=== PATIENT | male | born 1930 | race Caucasian/White ===

== ENCOUNTER 2019-01-04 23:33 | Observation (INO) ==
--- NOTE | 2019-01-04 05:05 | Internal Med History&Physical ---
Date of Encounter: 01/04/19 Time of Encounter: 05:07 Internal Medicine - H&P: HPI Chief complaint: Hematuria Admitted From: Hospital to Hospital Transfer Plans for Post Hospital Care: Home History of present illness: Mr. Martinez is a 88 year old male Patient presented to the [facility] emergency department with blood in his catheter. Patient has baseline dementia, and is unable to provide detailed history. Most of history obtained from [facility] emergency department records. Patient had apparently been seen at [facility] the day before and had a Hendrix catheter placed. He was sent to his detention at that point and urology follow-up and antibiotics were provided to him. He returned to the ER as it was noted that he had blood coming out of catheter site and within the catheter itself. He was also not draining very well. Patient arrived with the Hendrix unsecured, he had no leg bar in place but this had been done for him when he left the emergency department the day previously. Upon arrival his urine appeared dark and there was a small clot noted near the meatus of the penis. The emergency department attempted to irrigate the Hendrix but there was no return into the Hendrix bag. A CT was performed that showed that the balloon of the Hendrix had inflated in the prostate and the tip of the catheter was distal to the bladder. This Hendrix was then removed and a new coude catheter was inserted and there was an immediate return of 800 mL of dark urine. The [facility] emergency department contacted urology director hr communications Dr. Meléndez who agreed to see the patient when he arrives to [facility]. A repeat hemoglobin was performed and was noted to be 7.1. Blood bank labs were ordered and patient was started on 1 unit of PRBCs for transfusion. BMP: Sodium 140, potassium 4.3, chloride 106, CO2 26, P1 26, creatinine 1.88, glucose 99 Liver function tests: AST 29, ALT 17, alkaline phosphatase 90, total bilirubin 0.9 CBC: White count 9.7, hemoglobin 7.6 (repeat 7.1), hematocrit 24.4, platelets 154 CT abdomen and pelvis without contrast: 1. Urinary bladder is distended with air in non-dependent portion. Gas may be iatrogenic versus related to infection. 2. Hendrix catheter has been placed and malpositioned with balloon dilated in prostatic urethra. Tip is in the posterior aspect of the prostate. 3. Small bilateral effusions and bibasilar airspace disease with some cavitation on the right. This is favored infectious in etiology cavitation can also be seen in setting of primary neoplasm versus metastatic process. 4. Cardiomegaly with coronary aortic calcification. Upon my evaluation, patient is resting comfortably in hospital bed in no acute distress. He is not oriented to place, time but is to person. He denies chest pain, abdominal pain, nausea, vomiting, diarrhea and constipation. assisted documentation indicates that the patient's CODE STATUS is DNR CC. Past Med Surg Social Fam HX - Past Medical History Medical history: atrial fibrillation, coronary artery disease, hypertension Psychiatric history: no psych history - Past Surgical History Surgical History: pacemaker/AICD - Social History Smoking Status: Former smoker Smokeless Tobacco Status: No Alcohol use: none Drug use: none Internal Medicine - H&P: Meds Acetaminophen [Tylenol] 650 mg PO Q4H PRN tablet 12/20/18 [Rx] Amiodarone [Cordarone] 200 mg PO DAILY tablet 12/20/18 [Rx] Bisacodyl [Dulcolax] 10 mg RC DAILY PRN supp.rect 12/20/18 [Rx] Cyanocobalamin (B-12) [Vitamin B12] 1,000 mcg PO DAILY tablet 12/20/18 [Rx] Finasteride [Proscar] 5 mg PO DAILY tablet 12/20/18 [Rx] Ipratropium/Albuterol Neb [Duoneb] 3 ml IH [id number] PRN inhsol 12/20/18 [Rx] Lacri-Lube [Lacri-lube] 1 appl BOTH EYES BID tube 12/20/18 [Rx] Midodrine [ProAmatine] 5 mg PO 0800,1200,1700 tablet 12/20/18 [Rx] Polyethylene Glycol 3350 [MiraLAX] 17 gm PO DAILY powd.pack 12/20/18 [Rx] Simethicone [Gas-X] 80 mg PO TID PRN tab.chew 12/20/18 [Rx] levETIRAcetam [Keppra] 1,000 mg PO Q12HR tablet 12/20/18 [Rx] Ciprofloxacin HCL 500 mg PO BID 01/04/19 [History] Ondansetron [Zofran] 4 mg PO Q4HR PRN 06/27/19 [History] Allergy/AdvReac Type Severity Reaction Status Date / Time Penicillins Allergy Anaphylaxis Verified 12/18/18 17:32 promethazine [From Phenergan] Allergy See Verified 01/04/19 03:51 Comments Streptomycin Allergy Anaphylaxis Verified 12/18/18 17:32 Sulfa (Sulfonamide Allergy Anaphylaxis Verified 12/18/18 17:32 Antibiotics) All Systems PM: A 10-system review of systems was performed and is negative for pertinent findings except as documented above in the HPI. - Constitutional Vitals: Temp Pulse Resp BP Pulse Ox 98.7 F 70 16 136/72 94 01/04/19 02:21 01/04/19 02:21 01/04/19 02:21 01/04/19 02:21 01/04/19 03:26 General appearance: Present: cooperative, A&O X 1, pleasant, no acute distress, answers questions appropriately Exam: - - Head Head exam: Present: normal inspection - Eye Eye exam: Present: EOMI, normal appearance - Respiratory Respiratory exam: Present: CTAB. Absent: rales, respiratory distress, rhonchi, wheezes - Cardiovascular Cardiovascular exam: Present: RRR, systolic murmur. Absent: diastolic murmur Additional comments: Grade 2 systolic murmur - GI/Abdominal GI/Abdominal exam: Present: normal bowel sounds, soft. Absent: tenderness - Additional comments: Blood noted at the urethral meatus. Hendrix catheter appears to be draining urine - Extremities Exam Extremities exam: Present: warm, radial pulses palpable and symmetrical. Absent: calf tenderness, pedal edema, tenderness - Neurological Exam Neurological exam: Present: alert, altered, no focal deficits, strengths equal and symetr throughout. Absent: motor sensory deficit, facial droop, speech deficit - Skin Skin exam: Present: dry, normal color, warm - Assessment and Plan (1) Hematuria Current Visit: Yes Status: Acute Assessment and plan: Likely secondary to catheter trauma. Patient's hemoglobin was noted to be 7.1. He was typed and screened at the [facility] emergency room department and given 1 unit of PRBCs. Follow-up repeat hemoglobin Urology consultation Transfuse if indicated Type and screen Qualifiers: Hematuria type: gross Qualified Code(s): R31.0 - Gross hematuria (2) Hendrix catheter problem Current Visit: Yes Status: Acute Assessment and plan: Patient's Hendrix was noted to be inflated in his prostate and distal to the bladder. Patient could have manipulated his previous Hendrix. The Hendrix was replaced with a coude catheter at the [facility] emergency room. Urology was n otified and will see the patient in the morning. Catheter appears to be draining at this time. Blood is still noted around the urethral meatus. He had been started on ciprofloxacin at [facility]. Continue antibiotics Follow-up urology consult Continue Hendrix catheter Monitor I's and O's Qualifiers: Encounter type: initial encounter Qualified Code(s): T83.9XXA - Unspecified complication of genitourinary prosthetic device, implant and graft, initial encounter (3) Anemia Current Visit: No Status: Acute Assessment and plan: Patient had notable clots and hematuria in his Hendrix catheter. Type and screened at [facility] and was given 1 unit PRBCs. Repeat CBC Transfuse if indicated Urology consultation today Qualifiers: Anemia type: unspecified type Qualified Code(s): D64.9 - Anemia, unspec ified (4) DVT prophylaxis Current Visit: Yes Status: Acute Assessment and plan: SCDs - Time Spent With Patient Total time spent is greater than 50% in coordination of care (as documented) at patient's floor/unit and/or counseling patient: Greater than 35 minutes
[2019-01-04 06:45] LABS: Calcium 7.9 mg/dL (8.6-10.3); Potassium 3.8 mEq/L (3.5-5.1)
--- NOTE | 2019-01-04 08:38 | Urology - Consult Note ---
<Lucinda Collier N - Last Filed: 01/04/19 09:35> Date of Encounter: 01/04/19 Time of Encounter: 08:20 - Assessment and Plan (1) Hematuria Current Visit: Yes Status: Acute Assessment and plan: Patient is an 88-year-old male who presents with gross hematuria following traumatic catheter displacement. We will plan to place a catheter, and irrigate patient's bladder as needed. Patient may require cystoscopic guidance of catheter versus suprapubic catheter placement. Qualifiers: Hematuria type: gross Qualified Code(s): R31.0 - Gross hematuria (2) Difficulty with insertion of urinary catheter Current Visit: Yes Status: Acute Assessment and plan: Patient is an 88-year-old male who presents with difficulty with insertion of urinary catheter. I suspect patient has a false passage secondary to multiple catheter attempts. I tended to place a 14-Montserratian coude catheter but met significant resistance at the prostate. I then attempted to place a wire for a solomon tip catheter, but I was unable to successfully advance physical wire into the urinary bladder. Dr. Meléndez has been notified, and he will reevaluate patient after the bladder scan is performed. Urology CN:[facility] Consult date: 01/04/19 Reason for consult Urology: Difficult Ramirez (hematuria; catheter trauma) Requesting physician: David Chatterjee History of present illness: Patient is an 88-year-old male who presents with a difficult catheter insertion and gross hematuria following trauma catheter displacement. Patient has a history of dementia, and unfortunately, he is unable to provide adequate history. Patient initially presented to [facility] where a Ramirez catheter was placed with difficulty in the emergency department. Patient was discharged back to his extended care facility, and he presented presented one day later with report of blood at the urethral meatus and in catheter tubing. The Ramirez was not secured to patient's extremity, and it appeared to be displaced. Patient subsequently underwent a CT of the pelvis revealing a displaced Ramirez catheter into the prostatic urethra. Patient underwent coude catheter placement with a 30 mL of urine drained and was subsequently transferred to [facility] for further evaluation. On my evaluation, patient is sitting upright in bed, and [facility] and ramirez catheter. Ramirez catheter is indwelling, but it appears to be displaced distally and is not draining. There is scant amount of tea color urine in bedside bag. Patient's nurses is in room and tells me he is requiring a sitter for behavior. Past Med Surg Social Fam HX - Past Medical History Medical history: atrial fibrillation, coronary artery disease, hypertension Psychiatric history: no psych history - Past Surgical History Surgical History: pacemaker/AICD - Social History Smoking Status: Former smoker Smokeless Tobacco Status: No Alcohol use: none Drug use: none - Additional Family History Additional family history: Noncontributory family history secondary to patient's mental status Medications and Allergies Acetaminophen [Tylenol] 650 mg PO Q4H PRN tablet 12/20/18 [Rx] Amiodarone [Cordarone] 200 mg PO DAILY tablet 12/20/18 [Rx] Bisacodyl [Dulcolax] 10 mg RC DAILY PRN supp.rect 12/20/18 [Rx] Cyanocobalamin (B-12) [Vitamin B12] 1,000 mcg PO DAILY tablet 12/20/18 [Rx] Finasteride [Proscar] 5 mg PO DAILY tablet 12/20/18 [Rx] Ipratropium/Albuterol Neb [Duoneb] 3 ml IH [id number] PRN inhsol 12/20/18 [Rx] Lacri-Lube [Lacri-lube] 1 appl BOTH EYES BID tube 12/20/18 [Rx] Midodrine [ProAmatine] 5 mg PO 0800,1200,1700 tablet 12/20/18 [Rx] Polyethylene Glycol 3350 [MiraLAX] 17 gm PO DAILY powd.pack 12/20/18 [Rx] Simethicone [Gas-X] 80 mg PO TID PRN tab.chew 12/20/18 [Rx] levETIRAcetam [Keppra] 1,000 mg PO Q12HR tablet 12/20/18 [Rx] Ciprofloxacin HCL 500 mg PO BID 01/04/19 [History] Ondansetron [Zofran] 4 mg PO Q4HR PRN 01/04/19 [History] Allergy/AdvReac Type Severity Reaction Status Date / Time Penicillins Allergy Anaphylaxis Verified 12/18/18 17:32 promethazine [From Phenergan] Allergy See Verified 01/04/19 03:51 Comments Streptomycin Allergy Anaphylaxis Verified 12/18/18 17:32 Sulfa (Sulfonamide Allergy Anaphylaxis Verified 12/18/18 17:32 Antibiotics) Review of Systems ROS unobtainable: due to mental status Exam Initial Vital Signs Temp Pulse Resp BP Pulse Ox 98.7 F 70 16 136/72 94 01/04/19 02:21 01/04/19 02:21 01/04/19 02:21 01/04/19 02:21 01/04/19 02:21 - General physical appearance Present: no distress, no pain - Eyes Present: PERRL, normal ocular movement - ENT Present: no congestion, decreased hearing - Neck Present: trachea midline, no lymphadenopathy - Respiratory Present: normal respiratory effort - Cardiovascular Cardiovascular exam IM: RRR - Abdomen Abdomen: Present: soft, non tender. Absent: distended - Genitourinary normal penis with no external lesions Penis: Present: retractable foreskin Urethral meatis: Present: patent - Integumentary Present: no rash, no abnormal pigmentation - Neurologic Present: disoriented, confused - Musculoskeletal Present: other (normal posture; no pedal edema ) Urology Results - Labs 01/04/19 05:43 Abnormal lab results BUN 24 mg/dL (8-23) H 01/04/19 05:43 1.63 mg/dL (0.70-1.30) H 01/04/19 05:43 Est GFR ( Amer) 49 (> 60) L 01/04/19 05:43 Est GFR (Non-Af Amer) 40 (> 60) L 01/04/19 05:43 Glucose 121 mg/dL (70-105) H 01/04/19 05:43 Calcium 7.9 mg/dL (8.6-10.3) L 01/04/19 05:43 Diabetes panel 01/04/19 Range/Units 05:43 Sodium 139 (136-145) mEq/L Potassium 3.8 (3.5-5.1) mEq/L Chloride 107 (98-107) mEq/L Carbon Dioxide 23 (23-29) mEq/L BUN 24 H (8-23) mg/dL Creatinine 1.63 H (0.70-1.30) mg/dL Glucose 121 H (70-105) mg/dL Calcium 7.9 L (8.6-10.3) mg/dL Calcium panel 01/04/19 Range/Units 05:43 Calcium 7.9 L (8.6-10.3) mg/dL Pituitary panel 01/04/19 Range/Units 05:43 Sodium 139 (136-145) mEq/L Potassium 3.8 (3.5-5.1) mEq/L Chloride 107 (98-107) mEq/L Carbon Dioxide 23 (23-29) mEq/L BUN 24 H (8-23) mg/dL Creatinine 1.63 H (0.70-1.30) mg/dL Glucose 121 H (70-105) mg/dL Calcium 7.9 L (8.6-10.3) mg/dL Adrenal panel 01/04/19 Range/Units 05:43 Sodium 139 (136-145) mEq/L Potassium 3.8 (3.5-5.1) mEq/L Chloride 107 (98-107) mEq/L Carbon Dioxide 23 (23-29) mEq/L BUN 24 H (8-23) mg/dL Creatinine 1.63 H (0.70-1.30) mg/dL Glucose 121 H (70-105) mg/dL Calcium 7.9 L (8.6-10.3) mg/dL All other labs normal. Procedures:Urology - Catheter Insertion (Urinary) Preparation: Povidone-Iodine, Urojet Type of catheter inserted: 2 way, coude tip Catheter Montserratian Size: 14 Topical anesthesia used: Yes Results: unable to pass, retried with smaller/different catheter Urine Appearance: Small Blood Clots Patient tolerated procedure: well Complications: bloody urine Additional comments: Patient lying in the supine position with executive director of nursing and ASPARAGUS BUNCHER at bedside. Patient was prepped and draped in normal sterile fashion. I removed 16-Montserratian coude catheter, because it was not draining. I first attempted to replace the indwelling 16-Montserratian catheter, but it was unable to be repositioned into the bladder. I attempted to replace a 14-Montserratian coude tip catheter, but I met a significant amount of resistance at the prostate. I then attempted to insert a zip wire, but the wire coiled back out of the patient's urethra. Patient tolerated catheter attempts well, and I did notice a small amount of blood at urethral meatus. I have ordered a bladder scan, and I notified Dr. Meléndez. We will plan to attempt either a cystoscopic guided catheter placement or meredith suprapubic catheter. Consult Discharge Plan - Plan Referrals: NONE,PCP [Non-Partnered Physician] - <Arnold Meléndez - Last Filed: 01/04/19 12:59> Date of Encounter: 01/04/19 - Assessment and Plan (1) Ramirez catheter problem Current Visit: Yes Status: Acute Assessment and plan: Patient seen and examined in conjunction with physician pediatric physical therapy assistant. Significant difficulty with catheter placement at [facility] and outside emergency room. Catheter was not in position on evaluation this morning with no urine output. On my evaluation patient had a small amount of blood per meatus. I prepped the patient with Betadine and positioned an 18-Montserratian catheter through his meatus but met resistance and was in what I suspected to be a false passage. I was eventually able to navigate a straight zip wire around the Ramirez catheter and it passed without resistance into the bladder. I then used a catheter punch to create a solomon tip catheter and passed the 18-Montserratian three-way catheter over the zip wire with return of clear urine. The balloon was inflated with 20 mL. No complications were noted. Do not remove the Ramirez catheter for any reason. Patient can be discharged per urology standpoint as he will not require further urologic intervention. He can follow with his outside urologist at [facility] or with the [place] [facility] group within 4 weeks. Qualifiers: Encounter type: initial encounter Qualified Code(s): T83.9XXA - Unspecified complication of genitourinary prosthetic device, implant and graft, initial encounter Exam Initial Vital Signs Temp Pulse Resp BP Pulse Ox 98.7 F 70 16 136/72 94 01/04/19 02:21 01/04/19 02:21 01/04/19 02:21 01/04/19 02:21 01/04/19 02:21 Urology Results - Labs 01/04/19 10:32 01/04/19 05:43 Abnormal lab results RBC 3.21 M/mcL (4.19-5.50) L 01/04/19 10:32 Hgb 8.7 g/dL (12.9-16.9) L 01/04/19 10:32 Hct 27.5 % (37.5-50.1) L 01/04/19 10:32 MCH 27.1 pg (28.0-33.3) L 01/04/19 10:32 RDW 18.8 % (11.5-14.5) H 01/04/19 10:32 BUN 24 mg/dL (8-23) H 01/04/19 05:43 1.63 mg/dL (0.70-1.30) H 01/04/19 05:43 Est GFR ( Amer) 49 (> 60) L 01/04/19 05:43 Est GFR (Non-Af Amer) 40 (> 60) L 01/04/19 05:43 Glucose 121 mg/dL (70-105) H 01/04/19 05:43 Calcium 7.9 mg/dL (8.6-10.3) L 01/04/19 05:43 Diabetes panel 01/04/19 Range/Units 05:43 Sodium 139 (136-145) mEq/L Potassium 3.8 (3.5-5.1) mEq/L Chloride 107 (98-107) mEq/L Carbon Dioxide 23 (23-29) mEq/L BUN 24 H (8-23) mg/dL Creatinine 1.63 H (0.70-1.30) mg/dL Glucose 121 H (70-105) mg/dL Calcium 7.9 L (8.6-10.3) mg/dL Calcium panel 01/04/19 Range/Units 05:43 Calcium 7.9 L (8.6-10.3) mg/dL Pituitary panel 01/04/19 Range/Units 05:43 Sodium 139 (136-145) mEq/L Potassium 3.8 (3.5-5.1) mEq/L Chloride 107 (98-107) mEq/L Carbon Dioxide 23 (23-29) mEq/L BUN 24 H (8-23) mg/dL Creatinine 1.63 H (0.70-1.30) mg/dL Glucose 121 H (70-105) mg/dL Calcium 7.9 L (8.6-10.3) mg/dL Adrenal panel 01/04/19 Range/Units 05:43 Sodium 139 (136-145) mEq/L Potassium 3.8 (3.5-5.1) mEq/L Chloride 107 (98-107) mEq/L Carbon Dioxide 23 (23-29) mEq/L BUN 24 H (8-23) mg/dL Creatinine 1.63 H (0.70-1.30) mg/dL Glucose 121 H (70-105) mg/dL Calcium 7.9 L (8.6-10.3) mg/dL All other labs normal.
[2019-01-04] MEDS: Lacri-Lube 3.5 GM TUBE BOTH EYES SCH ×2 (10:08→22:00)
[2019-01-04] MEDS: levETIRAcetam 250 MG TABLET PO SCH ×2 (10:08→21:59)
[2019-01-04] MEDS: *HR* Amiodarone 200 MG TABLET PO SCH (10:08)
[2019-01-04] MEDS: Cyanocobalamin (B-12) 1,000 MCG TABLET PO SCH (10:08)
[2019-01-04] MEDS: Finasteride 5 MG TABLET PO SCH (10:09)
--- NOTE | 2019-01-04 10:16 | Event Note ---
Date of Encounter: 01/04/19 Time of Encounter: 08:00 She was seen and examined at bedside. Patient has baseline dementia, and is unable to provide detailed history. He is alert and oriented 2 to time and person not to place ( believes he is in a house) he denies nausea, vomiting or diarrhea. He denies fever or chills has had no chest pain or palpitations. Vital signs reviewed No acute distress, laying supine in bed Clear to auscultation bilaterally Regular rate and rhythm, S1 and S2, systolic ejection murmur at the second right intercostal space Moving all 4 extremities, no edema Alert and oriented 2 to time and person not to place ( believes he is in a house) Assessment and plan Hematuria Chronic Hendrix catheter with recent catheter exchange with trauma Anemia most likely secondary to hematuria Dementia Atrial fibrillation Continue with home medications if not contraindicated Urology consulted for Hendrix exchange Continue to monitor renal functions Type and screened at [facility] and was given 1 unit PRBCs. Continue to monitor H&H closely Fall, aspiration and seizure precautions Physical therapy and occupational therapy along with case management consulted Nutrition consult
[2019-01-04 11:45] LABS: Hematocrit 27.5 % (37.5-50.1); Hemoglobin 8.7 g/dL (12.9-16.9); Mean Corpuscular HGB Conc 31.6 g/dL (31.6-35.5); Mean Corpuscular Hemoglobin 27.1 pg (28.0-33.3); Mean Corpuscular Volume 85.7 fL (83.0-100.0); Mean Platelet Volume 10.6 fL (9.4-12.4); Platelet Count 160 K/mcL (140-400); Red Blood Count 3.21 M/mcL (4.19-5.50); Red Cell Distribution Width 18.8 % (11.5-14.5); White Blood Count 9.9 K/mcL (4.3-11.1)
[2019-01-04 13:13] LABS: Bilirubin,Urine Moderate (Negative); Blood,Urine Large (Negative); Clarity,Urine Turbid (Clear); Glucose,Urine (UA) Normal (Normal); Ketones,Urine Trace mg/dL (Negative); Leukocyte Esterase,Urine Moderate (Negative); Nitrite,Urine Negative (Negative); PH,Urine 5.5 pH Units (5.0-8.0); Protein,Urine 100 mg/dL (Neg-Trace); Specific Gravity,Urine > 1.030 (1.010-1.025); Urobilinogen,Urine Normal (Normal)
[2019-01-04 13:17] LABS: Hyaline Casts,Urine None Seen per lpf (None-Few); Squamous Epithelial Cell,Urine Many per lpf (None-Few); WBC,Urine 50-100 per hpf (0-3)
[2019-01-04 13:30] LABS: Color,Urine Brown (Yellow)
[2019-01-04 14:11] LABS: Bacteria,Urine Few per hpf (None-Few); RBC,Urine 50-100 per hpf (0-3); Yeast,Urine Moderate per hpf (None Seen)
[~2019-01-04 23:33] MED LIST: Acetaminophen 325 MG TABLET PO PRN; Bisacodyl 10 MG RECTAL SUPPOSITORY RC PRN; Ipratropium/Albuterol Neb 3 ML IH PRN; Naloxone 0.4 MG/ML INJ IVP PRN
[2019-01-05 05:34] LABS: Hematocrit 25.6 % (37.5-50.1); Hemoglobin 8.2 g/dL (12.9-16.9); Mean Corpuscular Hemoglobin 26.9 pg (28.0-33.3); Mean Corpuscular Volume 83.9 fL (83.0-100.0); Mean Platelet Volume 10.1 fL (9.4-12.4); Platelet Count 135 K/mcL (140-400); Red Blood Count 3.05 M/mcL (4.19-5.50); Red Cell Distribution Width 18.9 % (11.5-14.5); White Blood Count 8.2 K/mcL (4.3-11.1)
[2019-01-05 05:53] LABS: Calcium 7.9 mg/dL (8.6-10.3); Potassium 4.1 mEq/L (3.5-5.1)
[2019-01-05] MEDS ORDERED: E-Z-PAQUE (BARIUM SULF) SUSP 1 BOTTLE PO ONE (08:08)
[2019-01-05] MEDS ORDERED: E-Z-HD (BARIUM SULF) SUSPENSION PO ONE (08:08)
[2019-01-05] MEDS ORDERED: Cholecalciferol (D-3) 1,000 UNIT TABLET PO SCH (09:00)
--- NOTE | 2019-01-05 09:01 | Urology Progress Note ---
<Lucinda Collier N - Last Filed: 01/05/19 08:58> Date of Encounter: 01/05/19 Time of Encounter: 07:55 - Assessment and Plan (1) Hematuria Current Visit: Yes Status: Acute Assessment and plan: Patient is an 88-year-old male who presents with gross hematuria following traumatic catheter displacement. Hematuria is now resolved, and catheter is indwelling and draining sufficiently. Qualifiers: Hematuria type: gross Qualified Code(s): R31.0 - Gross hematuria (2) Difficulty with insertion of urinary catheter Current Visit: Yes Status: Acute Assessment and plan: Patient is an 88-year-old male who presents with difficulty with insertion of urinary catheter. Patient required complex catheter placement with zip wire. Patient tolerated catheter placement well, and catheter remains in place draining sufficiently. Patient will require an outpatient follow-up within 1-[address] Meléndez for a voiding trial. Urology will sign off, but we are always available as needed. Progress Note Subjective: no new complaints Narrative: Patient seen and examined sitting upright in bed eating breakfast in no apparent distress. HYDROSTATIC TUBING TESTER at bedside sitting with patient. Hendrix catheter is indwelling an d draining transparent, dark yellow urine into bedside bag. Objective Initial Vital Signs Temp Pulse Resp BP Pulse Ox 98.7 F 70 16 136/72 94 01/04/19 02:21 01/04/19 02:21 01/04/19 02:21 01/04/19 02:21 01/04/19 02:21 - General physical appearance Present: well developed, no distress, no pain - Respiratory Present: normal expansion, normal respiratory effort - Abdomen Present: soft, non tender. Absent: distended - Genitourinary Urine Appearance: Present: Clear - Integumentary Present: no rash, no abnormal pigmentation - Musculoskeletal Present: normal posture - Psychiatric Present: oriented to person, oriented to place, speech is normal. Absent: oriented to time, memory intact - Labs 01/05/19 04:52 01/05/19 04:52 Diabetes panel 01/05/19 Range/Units 04:52 Sodium 138 (136-145) mEq/L Potassium 4.1 (3.5-5.1) mEq/L Chloride 105 (98-107) mEq/L Carbon Dioxide 25 (23-29) mEq/L BUN 22 (8-23) mg/dL Creatinine 1.44 H (0.70-1.30) mg/dL Glucose 103 (70-105) mg/dL Calcium 7.9 L (8.6-10.3) mg/dL Calcium panel 01/05/19 01/05/19 Range/Units 04:52 04:52 Calcium 7.9 L (8.6-10.3) mg/dL 25-OH Vitamin D Total 21 L (30-80) ng/mL Pituitary panel 01/05/19 Range/Units 04:52 Sodium 138 (136-145) mEq/L Potassium 4.1 (3.5-5.1) mEq/L Chloride 105 (98-107) mEq/L Carbon Dioxide 25 (23-29) mEq/L BUN 22 (8-23) mg/dL Creatinine 1.44 H (0.70-1.30) mg/dL Glucose 103 (70-105) mg/dL Calcium 7.9 L (8.6-10.3) mg/dL Adrenal panel 01/05/19 Range/Units 04:52 Sodium 138 (136-145) mEq/L Potassium 4.1 (3.5-5.1) mEq/L Chloride 105 (98-107) mEq/L Carbon Dioxide 25 (23-29) mEq/L BUN 22 (8-23) mg/dL Creatinine 1.44 H (0.70-1.30) mg/dL Glucose 103 (70-105) mg/dL Calcium 7.9 L (8.6-10.3) mg/dL Consult Discharge Plan - Plan Referrals: NONE,PCP [Non-Partnered Physician] - Prescriptions: LORazepam [Ativan] 0.5 mg PO Q4HR PRN 7 Days #42 tablet PRN Reason: Anxiety OXYCODONE Oral CONC [Oxycodone Oral Conc] 5 mg PO Q6H PRN 7 Days #15 ml PRN Reason: pain/dyspnea <Arnold Meléndez - Last Filed: 01/05/19 17:13> Date of Encounter: 01/05/19 - Assessment and Plan (1) Hendrix catheter problem Current Visit: Yes Status: Acute Assessment and plan: Patient seen and examined in conjunction with physician assistant refinery operator. Some bleeding from around the catheter which is not concerning. Catheter draining clear urine. Catheter needs to stay in place at least 1 week. He was followed by a urologist at [facility]. He can continue follow-up at their facility. [facility] is available if follow-up at [facility] is not possible Qualifiers: Encounter type: initial encounter Qualified Code(s): T83.9XXA - Unspecified complication of genitourinary prosthetic device, implant and graft, initial encounter Objective Initial Vital Signs Temp Pulse Resp BP Pulse Ox 98.7 F 70 16 136/72 94 01/04/19 02:21 01/04/19 02:21 01/04/19 02:21 01/04/19 02:21 01/04/19 02:21 - Labs 01/05/19 04:52 01/05/19 04:52 Diabetes panel 01/05/19 Range/Units 04:52 Sodium 138 (136-145) mEq/L Potassium 4.1 (3.5-5.1) mEq/L Chloride 105 (98-107) mEq/L Carbon Dioxide 25 (23-29) mEq/L BUN 22 (8-23) mg/dL Creatinine 1.44 H (0.70-1.30) mg/dL Glucose 103 (70-105) mg/dL Calcium 7.9 L (8.6-10.3) mg/dL Calcium panel 01/05/19 01/05/19 Range/Units 04:52 04:52 Calcium 7.9 L (8.6-10.3) mg/dL 25-OH Vitamin D Total 21 L (30-80) ng/mL Pituitary panel 01/05/19 Range/Units 04:52 Sodium 138 (136-145) mEq/L Potassium 4.1 (3.5-5.1) mEq/L Chloride 105 (98-107) mEq/L Carbon Dioxide 25 (23-29) mEq/L BUN 22 (8-23) mg/dL Creatinine 1.44 H (0.70-1.30) mg/dL Glucose 103 (70-105) mg/dL Calcium 7.9 L (8.6-10.3) mg/dL Adrenal panel 01/05/19 Range/Units 04:52 Sodium 138 (136-145) mEq/L Potassium 4.1 (3.5-5.1) mEq/L Chloride 105 (98-107) mEq/L Carbon Dioxide 25 (23-29) mEq/L BUN 22 (8-23) mg/dL Creatinine 1.44 H (0.70-1.30) mg/dL Glucose 103 (70-105) mg/dL Calcium 7.9 L (8.6-10.3) mg/dL
[2019-01-05] MEDS: levETIRAcetam 250 MG TABLET PO SCH (09:47)
[2019-01-05] MEDS: *HR* Amiodarone 200 MG TABLET PO SCH (09:48)
[2019-01-05] MEDS: Finasteride 5 MG TABLET PO SCH (09:48)
[2019-01-05] MEDS: Cyanocobalamin (B-12) 1,000 MCG TABLET PO SCH (09:48)
[2019-01-05] MEDS: Lacri-Lube 3.5 GM TUBE BOTH EYES SCH (09:49)
--- NOTE | 2019-01-05 11:15 | Internal Med Progress Note ---
Hospitalist Progress Note - Encounter Date of Encounter: 01/05/19 Time of Encounter: 07:43 - Subjective Interval History: Patient was seen and examined at bedside. Has no complaints. Tolerating by mouth diet. All questions answered. - Exam Vitals: Temp Pulse Resp BP Pulse Ox 98.5 F 70 15 154/78 94 01/05/19 08:00 01/05/19 08:00 01/05/19 08:00 01/05/19 08:00 01/05/19 08:00 Exam: No acute distress, laying supine in bed, pale Clear to auscultation bilaterally Regular rate and rhythm, S1 and S2, systolic ejection murmur at the second right intercostal space Moving all 4 extremities, no edema abdomen soft, nontender, no distended, bs positive ramirez catheter in place draining blood tinged urine Alert and oriented 2 to time and person not to place ( believes he is in a house)- ahs periods of agitation as per nursing staff - Assessment and Plan (1) Anemia Current Visit: No Status: Acute (2) Hematuria Current Visit: Yes Status: Acute (3) Ramirez catheter problem Current Visit: Yes Status: Acute (4) DVT prophylaxis Current Visit: Yes Status: Acute DVT Prophylaxis: Hematuria Chronic Ramirez catheter with recent catheter exchange with trauma complicated UTI Anemia most likely secondary to hematuria Dementia Atrial fibrillation recent SDH/SAH orpharyngeal dysphagia DNRCC continue with keppra and omeprazole urology on board- ramirez was exchanged Continue to monitor renal functions Type and screened at [facility] and was given 1 unit PRBCs - H/h stable Fall, aspiration and seizure precautions Physical therapy and occupational therapy along with case management consulted Nutrition consulted does have CXR with bibasilar disease and CT chest at [facility] with ? Small bilateral effusions and bibasilar airspace disease with some cavitation on the right.- currently not complaining of any respiratory complaints, no fever or leukocytosis. PSYCHOLOGISTS on board for MBS today- diet as per PSYCHOLOGISTS on amiodarone for Afib and on ciprofloxacin for complicated UTI will continue to with Abx renally adjusted as per pharmacist ( QT 490) - will discuss with family and watch QT as he is allergic to multiple ABx - as per transfer documents treat to january 12. palliative consulted - for comfort care medications/ has periods of agitation- goals of care not clear and friend is listed as contact - Time Spent with Patient Total time spent is greater than 50% in coordination of care (as documented) at patient's floor/unit and/or counseling patient: 25 - 35 minutes Internal Medicine: Result - Labs CBC & Chem 7: 01/05/19 04:52 01/05/19 04:52 Labs: Short CBC 01/04/19 01/05/19 Range/Units 10:32 04:52 WBC 9.9 8.2 (4.3-11.1) K/mcL Hgb 8.7 L 8.2 L (12.9-16.9) g/dL Hct 27.5 L 25.6 L (37.5-50.1) % Plt Count 160 135 L (140-400) K/mcL BMP 01/05/19 04:52 Sodium 138 Potassium 4.1 Chloride 105 Carbon Dioxide 25 BUN 22 Creatinine 1.44 H Glucose 103 Calcium 7.9 L Urine 01/04/19 Range/Units 12:32 Urine Color Brown (Yellow) Urine Clarity Turbid A (Clear) Urine pH 5.5 (5.0-8.0) pH Units Ur Specific [place] > 1.030 H (1.010-1.025) Urine Protein 100 H (Neg-Trace) mg/dL Urine Glucose (UA) Normal (Normal) mg/dL - Impressions Impressions Chest X-Ray 01/04/19 15:24 IMPRESSION: Bibasilar airspace disease, greater on the right, atelectasis and/or pneumonia. D/ / Jazmine Maxwell Cha, MD / Jazmine Maxwell Cha, MD Interpreting Provider: Jazmine Maxwell Cha, MD Videofluoroscopic Swallow 01/05/19 08:00 IMPRESSION: Deep laryngeal penetration with thin liquids. Please see separate speech pathology report for full discussion of findings and recommendations. D/ / Jigar Vogt MD / Jigar Vogt MD Interpreting Provider: Jigar Vogt MD Consult Discharge Plan - Plan Referrals: NONE,PCP [Non-Partnered Physician] - (1) Anemia Qualifiers: Anemia type: unspecified type Qualified Code(s): D64.9 - Anemia, unspecified (2) Hematuria Qualifiers: Hematuria type: gross Qualified Code(s): R31.0 - Gross hematuria (3) Ramirez catheter problem Qualifiers: Encounter type: initial encounter Qualified Code(s): T83.9XXA - Unspecified complication of genitourinary prosthetic device, implant and graft, initial encounter
--- NOTE | 2019-01-05 15:24 | Palliative - Consult Note ---
Date of Encounter: 01/05/19 Time of Encounter: 12:00 - Assessment and Plan (1) Anxiety Current Visit: Yes Status: Acute Assessment and plan: Patient has increased anxiety. Will send prescription for Ativan. (2) Dysuria Current Visit: Yes Status: Acute Assessment and plan: Diffuse pain. Will add Oxycodone PRN. (3) Hypertension Current Visit: No Status: Chronic Assessment and plan: BP 111/61; stable. Qualifiers: Hypertension type: essential hypertension Qualified Code(s): I10 - Essential (primary) hypertension (4) Hematuria Current Visit: Yes Status: Acute Assessment and plan: New catheter inserted by Urology. Follow up outpatient. Qualifiers: Hematuria type: gross Qualified Code(s): R31.0 - Gross hematuria (5) Difficulty with insertion of urinary catheter Current Visit: Yes Status: Acute (6) Goals of care, counseling/discussion Current Visit: Yes Status: Acute Assessment and plan: Met with patient at patient's bedside. Patient's family initially supported idea of transfer to hospice at [facility], but due to financial situation, decision was made to transfer to [facility] as Rehab, then when can no longer tolerate will transition to hospice at facility. Patient is DNRCC. Arranged with Dr. Granger for discharge today. Family desires no further aggressive treatment. Interested in completing treatment for UTI. MBS results known, would like to continue thickened liquids at [facility]. Notified [facility] of patient's discharge to rehab today. (7) Palliative care encounter Current Visit: Yes Status: Acute Palliative-CN HPI - Data of Consult Patient: new to practice Consult date: 01/05/19 Requesting Physician: Duke Clemens MD Primary Care Provider: Gumaro Marvin - Consult Narrative Palliative Care/Comfort Measures: Palliative care Reason for consult: DNRCC-[facility] History of present illness: Mr. Martinez is a 88 year old male admitted to [facility] as a transfer from [facility] specifically for Urology consultation. PMH: Dementia, Afib, CAD, HTN, SAH, Seizures. Patient was initially taken to [facility] the day before admission for evaluation due to urine retention. Catheter was placed and returned to facility. Next day patient was found to have clots in catheter. Patient was returned to [facility] and catheter was displaced. Catheter was changed and transfer to [facility]. Upon assessment by Urology, catheter continued to be misplaced, required re insertion by Urologist. Hgb 7.1, 1 u PRBC administered. Patient was medically managed for complicated UTI and Afib. Patient has CXR showing aspiration, MBS completed. Palliative care consulted for GOC. Patient lying in bed upon arrival. Denies pain, nausea and vomiting. Reports anxiety. Upon family's arrival to bedside, conducted bedside family meeting with nephew, niece (by phone), and niece in law present. CC: Duke Clemens MD - Time Spent with Patient Time: Total time spent is greater than 50% in coordination of care (as documented) at patient's floor/unit and/or counseling patient: Time with patient: 45 minutes Past Med Surg Social Fam HX - Past Medical History Medical history: atrial fibrillation, coronary artery disease, hypertension Psychiatric history: no psych history - Past Surgical History Surgical History: pacemaker/AICD - Social History Smoking Status: Former smoker Smokeless Tobacco Status: No Alcohol use: none Drug use: none Medications and Allergies Acetaminophen [Tylenol] 650 mg PO Q4H PRN tablet 12/20/18 [Rx] Amiodarone [Cordarone] 200 mg PO DAILY tablet 12/20/18 [Rx] Bisacodyl [Dulcolax] 10 mg RC DAILY PRN supp.rect 12/20/18 [Rx] Cyanocobalamin (B-12) [Vitamin B12] 1,000 mcg PO DAILY tablet 12/20/18 [Rx] Finasteride [Proscar] 5 mg PO DAILY tablet 12/20/18 [Rx] Ipratropium/Albuterol Neb [Duoneb] 3 ml IH [id number] PRN inhsol 12/20/18 [Rx] Polyethylene Glycol 3350 [MiraLAX] 17 gm PO DAILY powd.pack 12/20/18 [Rx] Simethicone [Gas-X] 80 mg PO TID PRN tab.chew 12/20/18 [Rx] Ciprofloxacin HCl [Cipro] 500 mg PO BID 01/04/19 [History] LevETIRAcetam [Keppra] 1,000 mg PO Q12H 01/05/19 [History] Midodrine [ProAmatine] 5 mg PO TID 01/05/19 [History] Mineral Oil/Petrolatum,White [Refresh Lacri-Lube Ointment] 1 appl BOTH EYES BID 01/05/19 [History] Ondansetron HCl [Zofran] 4 mg PO Q4H PRN 01/05/19 [History] Allergy/AdvReac Type Severity Reaction Status Date / Time Penicillins Allergy Anaphylaxis Verified 01/05/19 12:16 promethazine [From Phenergan] Allergy See Verified 01/05/19 12:16 Comments Streptomycin Allergy Anaphylaxis Verified 01/05/19 12:16 Sulfa (Sulfonamide Allergy Anaphylaxis Verified 01/05/19 12:16 Antibiotics) - Constitutional Constitutional ROS PAL: decreased appetite, anorexia, frequent falls, lethargy, no weight loss - EENT Eyes: no change in vision - Cardiovascular Cardiovascular ROS: no chest pain - Respiratory Respiratory: no dyspnea - Gastrointestinal Gastrointestinal: no nausea, no vomiting - Genitourinary Genitourinary ROS male: difficulty urinating, dysuria, hematuria - Musculoskeletal Musculoskeletal ROS IM: no back pain - Integumentary ROS Integumentary: dry skin, wounds - Neurological Neurological ROS: confusion, lack of coordination - Psychiatric Psychiatric general PM: anxiety Palliative Care-Exam - Constitutional Vitals: Temp Pulse Resp BP Pulse Ox 97.7 F 71 15 100/57 94 01/05/19 12:07 01/05/19 12:07 01/05/19 12:07 01/05/19 12:07 01/05/19 12:07 General appearance: Present: cooperative, no acute distress - Head Head Exam: Present: atraumatic, normal inspection - Eye Eye exam: Present: EOMI, normal appearance - ENT ENT exam: Present: mucous membranes dry, normal external ear exam - Expanded ENT Exam Mouth Exam: Present: dry mucosa - Neck Neck exam: Present: full ROM, normal inspection - Respiratory Respiratory exam: Present: decreased breath sounds, CTAB. Absent: accessory muscle use - Cardiovascular Cardiovascular exam: Present: +S1, +S2 - Expanded Cardiovascular Exam Peripheral pulses: 1+: Posterior Tibialis (L), Posterior Tibialis (R), Dorsalis Pedis (L) PM, Dorsalis Pedis (R) PM, 2+: Radial (L), Radial (R) - GI/Abdominal Exam GI/Abdominal exam: Present: soft. Absent: tenderness - Rectal Rectal Exam: Present: deferred - Catheter Type: Urethral (Hendrix) - Extremities Exam Extremities exam: Present: normal inspection. Absent: calf tenderness, pedal edema - Back Exam Back exam: Present: normal inspection. Absent: tenderness - Neurological Exam Neurological exam: Present: alert, altered. Absent: oriented X3 - Expanded Neurological Exam Patient oriented to: Present: person, time. Absent: place Coma Scale Eye Opening: To Voice Coma Scale Motor Response: Obeys Commands Coma Scale Verbal Response: Confused Coma Scale Total: 13 - Psychiatric Psychiatric exam: Present: anxious, flat affect - Skin Skin exam: Present: dry, pallor, warm Internal Medicine - CN: Reslt - Labs CBC & Chem 7: 01/05/19 04:52 01/05/19 04:52 Labs: Short CBC 01/05/19 Range/Units 04:52 WBC 8.2 (4.3-11.1) K/mcL Hgb 8.2 L (12.9-16.9) g/dL Hct 25.6 L (37.5-50.1) % Plt Count 135 L (140-400) K/mcL BMP 01/05/19 04:52 Sodium 138 Potassium 4.1 Chloride 105 Carbon Dioxide 25 BUN 22 Creatinine 1.44 H Glucose 103 Calcium 7.9 L - Impressions Impressions Chest X-Ray 01/04/19 15:24 IMPRESSION: Bibasilar airspace disease, greater on the right, atelectasis and/or pneumonia. D/ / Jazmine Maxwell Cha, MD / Jazmine Maxwell Cha, MD Interpreting Provider: Jazmine Maxwell Cha, MD Videofluoroscopic Swallow 01/05/19 08:00 IMPRESSION: Deep laryngeal penetration with thin liquids. Please see separate speech pathology report for full discussion of findings and recommendations. D/ / Jigar Vogt MD / Jigar Vogt MD Interpreting Provider: Jigar Vogt MD Consult Discharge Plan - Plan Referrals: NONE,PCP [Non-Partnered Physician] - Palliative Quality Palliative Quality: Screen for Code Status: Yes, Screen for Goals of Care: Yes, Screen for Pain: Yes, If Pain Regimen Started, Initiate Bowel Regimen: NA, Screen for Nausea/Vomitting: Yes Code Status: 01/04/19 05:30 Resuscitation Status: Active [RES] Routine Comment: Resuscitation Status: DNR-Comfort Care Palliative Scale - Palliative Performance Scale How ambulatory is this patient?: Mainly sit / lie What is patient's level of activity and evidence of disease?: Unable hobby/housework, Significant disease How much self-care assistance does patient require?: Considerable assistance required How much oral intake does the patient have?: Minimal to sips What is this patient's level of consciousness?: Full or drowsy with or without confusion Palliative Performance Score: 60 %
--- NOTE | 2019-01-05 16:00 | Discharge Summary ---
- NOTES TO OUTPATIENT PROVIDER Notes to Outpatient Provider: /follow up CBC and BMP on 01/08 Orders not resulted at time of discharge: Pending orders 01/04/19 12:32 Culture,Urine [RM] Stat 01/04/19 15:22 EKG [ECG 12 lead ECG] [ECG] Stat 01/05/19 06:00 EKG [ECG 12 lead ECG] [ECG] AM 0600 Date of Encounter: 01/05/19 Time of Encounter: 15:58 - Discharge Diagnosis (1) Anemia Priority: Primary Status: Acute Qualifiers: Anemia type: unspecified type Qualified Code(s): D64.9 - Anemia, unspecified (2) Hematuria Priority: Secondary Status: Acute Qualifiers: Hematuria type: gross Qualified Code(s): R31.0 - Gross hematuria (3) Ramirez catheter problem Priority: Secondary Status: Acute Qualifiers: Encounter type: initial encounter Qualified Code(s): T83.9XXA - Unspecified complication of genitourinary prosthetic device, implant and graft, initial encounter (4) DVT prophylaxis Priority: Secondary Status: Acute (5) Difficulty with insertion of urinary catheter Priority: Secondary Status: Acute (6) Goals of care, counseling/discussion Priority: Secondary Status: Acute (7) Subarachnoid hemorrhage Priority: Secondary Status: Acute (8) Subdural hematoma Priority: Secondary Status: Acute (9) BPH (benign prostatic hyperplasia) Priority: Secondary Status: Chronic Qualifiers: Lower urinary tract symptom presence: symptoms present Lower urinary tract symptom detail: unspecified Qualified Code(s): N40.1 - Benign prostatic hyperplasia with lower urinary tract symptoms (10) Atrial fibrillation Priority: Secondary Status: Acute Qualifiers: Atrial fibrillation type: unspecified Qualified Code(s): I48.91 - Unspecified atrial fibrillation Hospital course: Mr. Martinez is a 88 year old male Dementia, Afib, CAD, HTN, SAH, Seizures, r eecent SDH and SAH presented to [facility] from [facility] specifically for Urology consultation inregards to urinary retention and trauma. as per documentation catheter was placed at [facility] and he was given po Abx he was discharged back to [place]. he returned with cloths in [facility] catheter and catheter was found to be displaced. catheter was changed and he was sent to [facility] for further evaluation by urology. upon urology evaluation catheter was not draining. catheter was jazmyn nged by urology and urine was draining. Hgb 7.1, at [facility] and as per documentation 1 u PRBC administered with improvement of h/h to >8. he remained afebrile without leukocytosis, creatininne trended down post ramirez placement. he is to continue ciprofloxacin until 01/12 dose was renally adjusted. palliative consulted for goals of care. "Met with patient at patient's bedside. Patient's family initially supported idea of transfer to hospice at [facility], but due to financial situation, decision was made to transfer to [facility] as Rehab, then when can no longer tolerate will transition to hospice at facility. Patient is DNRCC. Arranged with Dr. Granger for discharge today. Family desires no further aggressive treatment. Interested in completing treatment for UTI. MBS results known, would like to continue thickened liquids at [facility]. Notified [facility] of patient's discharge to rehab today. " comfort care Rx provided by palliative medicine. follow CBC and bmp on 01/08 for hemoglobin and for renal function Discharge discussed with: patient, family, social work, case management, managing consultant clinical professor - Time Spent with Patient Total time spent providing and/or coordinating discharge services: Time spent: Greater than 30 minutes (35) - Discharge Medications Prescriptions: New LORazepam [Ativan] 0.5 mg PO Q4HR PRN 7 Days #42 tablet PRN Reason: Anxiety OXYCODONE Oral CONC [Oxycodone Oral Conc] 5 mg PO Q6H PRN 7 Days #15 ml PRN Reason: pain/dyspnea Ciprofloxacin [Cipro] 500 mg PO DAILY 7 Days #7 tablet Omeprazole [PriLOSEC] 20 mg PO DAILY@0630 capsule. Cholecalciferol (D-3) [Vitamin D] 1,000 unit PO DAILY tablet Continued LevETIRAcetam [Keppra] 1,000 mg PO Q12H Midodrine [ProAmatine] 5 mg PO TID Mineral Oil/Petrolatum,White [Refresh Lacri-Lube Ointment] 1 appl BOTH EYES BID Acetaminophen [Tylenol] 650 mg PO Q4H PRN tablet PRN Reason: MILD PAIN, ORAL TEMP > 101.5 Amiodarone [Cordarone] 200 mg PO DAILY tablet Bisacodyl [Dulcolax] 10 mg RC DAILY PRN supp.rect PRN Reason: Constipation Cyanocobalamin (B-12) [Vitamin B12] 1,000 mcg PO DAILY tablet Finasteride [Proscar] 5 mg PO DAILY tablet Ipratropium/Albuterol Neb [Duoneb] 3 ml IH [id number] PRN inhsol PRN Reason: Shortness Of Breath/Wheezing Polyethylene Glycol 3350 [MiraLAX] 17 gm PO DAILY powd.pack Simethicone [Gas-X] 80 mg PO TID PRN tab.chew PRN Reason: Indigestion Discontinued Ciprofloxacin HCl [Cipro] 500 mg PO BID Ondansetron HCl [Zofran] 4 mg PO Q4H PRN PRN Reason: Nausea Home Medications: Acetaminophen [Tylenol] 650 mg PO Q4H PRN tablet 12/20/18 [Rx] Amiodarone [Cordarone] 200 mg PO DAILY tablet 12/20/18 [Rx] Bisacodyl [Dulcolax] 10 mg RC DAILY PRN supp.rect 12/20/18 [Rx] Cyanocobalamin (B-12) [Vitamin B12] 1,000 mcg PO DAILY tablet 12/20/18 [Rx] Finasteride [Proscar] 5 mg PO DAILY tablet 12/20/18 [Rx] Ipratropium/Albuterol Neb [Duoneb] 3 ml IH [id number] PRN inhsol 12/20/18 [Rx] Polyethylene Glycol 3350 [MiraLAX] 17 gm PO DAILY powd.pack 12/20/18 [Rx] Simethicone [Gas-X] 80 mg PO TID PRN tab.chew 12/20/18 [Rx] Cholecalciferol (D-3) [Vitamin D] 1,000 unit PO DAILY tablet 01/05/19 [Rx] Ciprofloxacin [Cipro] 500 mg PO DAILY 7 Days #7 tablet 01/05/19 [Rx] LORazepam [Ativan] 0.5 mg PO Q4HR PRN 7 Days #42 tablet 01/05/19 [Rx] LevETIRAcetam [Keppra] 1,000 mg PO Q12H 01/05/19 [History] Midodrine [ProAmatine] 5 mg PO TID 01/05/19 [History] Mineral Oil/Petrolatum,White [Refresh Lacri-Lube Ointment] 1 appl BOTH EYES BID 01/05/19 [History] OXYCODONE Oral CONC [Oxycodone Oral Conc] 5 mg PO Q6H PRN 7 Days #15 ml 01/05/19 [Rx] Omeprazole [PriLOSEC] 20 mg PO DAILY@0630 capsule. 01/05/19 [Rx] Allergies/Adverse Reactions: Allergy/AdvReac Type Severity Reaction Status Date / Time Penicillins Allergy Anaphylaxis Verified 01/05/19 12:16 promethazine [From Phenergan] Allergy See Verified 01/05/19 12:16 Comments Streptomycin Allergy Anaphylaxis Verified 01/05/19 12:16 Sulfa (Sulfonamide Allergy Anaphylaxis Verified 01/05/19 12:16 Antibiotics) Date of admission: 01/04/19 01:40 Primary care physician: Gumaro Marvin Consults: 01/04/19 05:32 Consult to Urology [CONS] Routine Consulting Provider: Urology Eugenia Reason for Consult: Hematuria, catheter trauma. Contacted from [facility] emergency department Call Completed: Yes 01/04/19 10:10 Consult to Case Management [CONS] Routine Comment: Consult to Nutrition [CONS] Routine Comment: Consulting Provider: NUTRITION Reason for Dietary Consult: PO Supplementation Consult to Physical Therapy [CONS] Routine Comment: Evaluate, develop and implement POC Reason for Consult: dispostion Does patient have active BEDREST order?: No Is patient medically & hemodynamically stable?: Yes Patient assessed for mobility or mobilized this visit?: Yes OT [Consult to Occupational Therapy] [CONS] Routine Comment: Evaluate, develop and implement POC Reason for Consult: disposition Does patient have active BEDREST order?: No Is patient medically & hemodynamically stable?: Yes Patient assessed for mobility or mobilized this visit?: Yes 01/04/19 15:26 Consult to Speech Therapy [CONS] Routine Comment: Evaluate, develop and implement POC Reason for Consult: dysphagia Call Completed: No 01/05/19 11:15 Consult to Palliative Care [CONS] Routine Comment: Consulting Provider: Palliative Care Eugenia Reason for Consult: DNR cc ? was at [facility] Call Completed: Yes - Constitutional Vitals: Temp Pulse Resp BP Pulse Ox 99.3 F 71 16 111/61 94 01/05/19 15:17 01/05/19 15:17 01/05/19 15:17 01/05/19 15:17 01/05/19 15:17 Exam: No acute distress, laying supine in bed, pale Clear to auscultation bilaterally Regular rate and rhythm, S1 and S2, systolic ejection murmur at the second right intercostal space Moving all 4 extremities, no edema abdomen soft, nontender, no distended, bs positive ramirez catheter in place draining blood tinged urine Alert and oriented 2 to time and person not to place ( believes he is in a house)- ahs periods of agitation as per nursing staff - Patient Status Disposition: Transfer SNF Condition: Fair Functional capacity at discharge: uses cane/walker Overall status at discharge: patient is progressing back to baseline - Discharge Instructions Follow Up With: NONE,PCP [Non-Partnered Physician] - - Diet and Activity Activity: as per physical therapy, increase activity as tolerated Diet: other (pureed diet honey thickened liquid , low salt )
--- NOTE | 2019-01-05 16:15 | Physician Discharge Referral ---
ExtendedCare Referral Info Provider in Charge after Transfer: PCP Institutional Level of Care: Skilled - Diagnosis (1) Anemia Status: Acute (2) Hematuria Status: Acute (3) Ramirez catheter problem Status: Acute (4) DVT prophylaxis Status: Acute (5) Difficulty with insertion of urinary catheter Status: Acute (6) Goals of care, counseling/discussion Status: Acute (7) Subarachnoid hemorrhage Status: Acute (8) Subdural hematoma Status: Acute (9) BPH (benign prostatic hyperplasia) Status: Chronic (10) Atrial fibrillation Status: Acute - Transfer Medications Prescriptions: LORazepam [Ativan] 0.5 mg PO Q4HR PRN 7 Days #42 tablet PRN Reason: Anxiety OXYCODONE Oral CONC [Oxycodone Oral Conc] 5 mg PO Q6H PRN 7 Days #15 ml PRN Reason: pain/dyspnea Home Medications: Acetaminophen [Tylenol] 650 mg PO Q4H PRN tablet 12/20/18 [Rx] Amiodarone [Cordarone] 200 mg PO DAILY tablet 12/20/18 [Rx] Bisacodyl [Dulcolax] 10 mg RC DAILY PRN supp.rect 12/20/18 [Rx] Cyanocobalamin (B-12) [Vitamin B12] 1,000 mcg PO DAILY tablet 12/20/18 [Rx] Finasteride [Proscar] 5 mg PO DAILY tablet 12/20/18 [Rx] Ipratropium/Albuterol Neb [Duoneb] 3 ml IH [id number] PRN inhsol 12/20/18 [Rx] Polyethylene Glycol 3350 [MiraLAX] 17 gm PO DAILY powd.pack 12/20/18 [Rx] Simethicone [Gas-X] 80 mg PO TID PRN tab.chew 12/20/18 [Rx] Cholecalciferol (D-3) [Vitamin D] 1,000 unit PO DAILY tablet 01/05/19 [Rx] Ciprofloxacin [Cipro] 500 mg PO DAILY 7 Days #7 tablet 01/05/19 [Rx] LORazepam [Ativan] 0.5 mg PO Q4HR PRN 7 Days #42 tablet 01/05/19 [Rx] LevETIRAcetam [Keppra] 1,000 mg PO Q12H 01/05/19 [History] Midodrine [ProAmatine] 5 mg PO TID 01/05/19 [History] Mineral Oil/Petrolatum,White [Refresh Lacri-Lube Ointment] 1 appl BOTH EYES BID 01/05/19 [History] OXYCODONE Oral CONC [Oxycodone Oral Conc] 5 mg PO Q6H PRN 7 Days #15 ml 01/05/19 [Rx] Omeprazole [PriLOSEC] 20 mg PO DAILY@0630 capsule. 01/05/19 [Rx] Allergies/Adverse Reactions: Allergy/AdvReac Type Severity Reaction Status Date / Time Penicillins Allergy Anaphylaxis Verified 01/05/19 12:16 promethazine [From Phenergan] Allergy See Verified 01/05/19 12:16 Comments Streptomycin Allergy Anaphylaxis Verified 01/05/19 12:16 Sulfa (Sulfonamide Allergy Anaphylaxis Verified 01/05/19 12:16 Antibiotics) - Respiratory Orders Smoking Cessation: Smoking cessation has been advised. For more information, call the [employer] Tobacco Quit Line at 9-451-XDXD-NOW. - Lab Orders Lab Orders: CBC (along with bmp on 01/08) - Advance Directives Code Status: DNR-Comfort Care - Mobility Orders Ambulate - Rehabiliation Orders Rehab Potential: Fair Rehab Orders: Sternal Precautions, ROM Exercises, Evaluation for Physical Therapy, Evaluation for Occupational Therapy, Evaluation for Speech Therapy - Treatments List/Other: ramirez catheter care as per nursing - Diet Orders Pureed (honethickened liquis) CERTIFICATION: I certify that the transfer of the above named patient to an Extended Care Facility is necessary for the continuing treatment of the diagnosis listed. The above information is true and accurate reflection of patient's current co ndition. Confidential - Redisclosure prohibited without a patient's written consent.
--- NOTE | 2019-01-05 16:15 | Electrocardiograph Report ---
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
[2019-01-05 19:25] VITALS: BP 151/75
== END 2019-01-05 20:07 ==
LOC: 3NENU
PROVIDERS: ADMIT Pediatrics; ATTEND Pediatrics